=== PATIENT | male | born 1950 | race Caucasian/White ===

== ENCOUNTER 2019-03-03 09:20 | Day surgery (SDC) | payer MEDICARE, BC ==
[~2019-03-03] VITALS: Ht 165.1 cm; Wt 82.8 kg
[~2019-03-03 09:20] MED LIST: AMLODIPINE; ASPI-903 PO; ATOR40TA68 PO; ISOS30TA67 PO; LOSA1TAB25 PO; METO-319 PO
[2019-03-03] MEDS ORDERED: PROPOFOL 200 MG INJ ONE (10:00)
[2019-03-03] MEDS ORDERED: LIDOCAINE 2% (SDV) 5 ML INJ ONE (10:00)
[2019-03-03] MEDS ORDERED: PROPOFOL 40 ML ONE (10:03)
[2019-03-03 10:06] VITALS: Ht 165.1 cm; Wt 82.8 kg
[2019-03-03 10:12] VITALS: BP 134/72; PULSE 64; RESP 16
[2019-03-03 11:15] VITALS: BP 136/76; RESP 20
== END 2019-03-03 14:04 | disposition home or self-care (01) ==
LOC: GIL 09:20
PROVIDERS: ATTEND Internal Medicine Gastroenterology
DX: Z12.11 Encounter for screening for malignant neoplasm of colon (principal); D12.5 Benign neoplasm of sigmoid colon; K64.8 Other hemorrhoids; I10 Essential (primary) hypertension; I25.10 Atherosclerotic heart disease of native coronary artery without angina pectoris; Z79.82 Long term (current) use of aspirin
CPT/HCPCS: 88305